=== PATIENT | female | born 1935 | race African-American/Black ===

== ENCOUNTER 2017-03-01 16:26 | Emergency (ER) | payer MEDICARE ==
[~2017-03-01] VITALS: Ht 152.4 cm; Wt 78.3 kg
[2017-03-01] MEDS ORDERED: SODIUM CHLORIDE 0.9% 1,000 ML IV ONE ×2 (16:34→17:14)
[2017-03-01] MEDS ORDERED: KETOROLAC 30MG/ML VIAL IV STA (17:14)
[2017-03-01] MEDS ORDERED: METOCLOPRAMIDE HCL 10MG/2ML VIAL IV ONE (17:15)
[2017-03-01 17:41] VITALS: BP 192/121
[2017-03-01] MEDS ORDERED: HYDRALAZINE HCL 50MG TABLET PO ONE (18:00)
== END 2017-03-01 19:59 | disposition home or self-care (01) ==
LOC: ER 16:39
DX: R51 Headache (principal); I10 Essential (primary) hypertension; Z88.0 Allergy status to penicillin; Z90.49 Acquired absence of other specified parts of digestive tract
CPT/HCPCS: 70450; 96374; 96375; 99284; J1885; J2765; J7030

== ENCOUNTER 2018-09-15 12:24 | Inpatient (IN) | payer MEDICARE ==
[~2018-09-15] VITALS: Ht 152.4 cm; Wt 75.7 kg
[2018-09-15 13:02] LABS: BASOPHILS % 0.6 % (0.0-2.0); EOSINOPHILS % 1.7 % (0.0-5.0); HEMATOCRIT. 43.1 % (36.0-48.0); HEMOGLOBIN. 15.3 g/dL (12.0-16.0); LYMPHOCYTES % 31.5 % (20.0-50.0); MEAN CORPUSCULAR HEMOGLOBIN 33.8 pg (28.0-32.0); MEAN CORPUSCULAR VOLUME 95.1 fL (81.0-99.0); MEAN PLATELET VOLUME 9.9 fl (7.4-10.4); NEUTROPHILS % 57.2 % (40.0-76.0); PLATELET 217 x1000/uL (130-400); RED BLOOD CELL COUNT 4.53 mill/uL (4.2-5.4); RED CELL DISTRIBUTION WIDTH 13.5 % (11.6-14.6)
[2018-09-15 13:08] LABS: CHLORIDE 105 mEq/L (98-107)
[2018-09-15 13:11] LABS: ETHANOL BLOOD < 10 mg/dL
[2018-09-15 13:13] LABS: LDL CHOLESTEROL 73 mg/dL (5-100)
[2018-09-15 13:23] LABS: PROTHROMBIN TIME 10.7 sec (9.6-11.0)
[2018-09-15] MEDS ORDERED: ASPIRIN 325MG TABLET PO ONE (13:30)
[2018-09-15] MEDS ORDERED: ASPIRIN 300MG SUPP PR ONE (13:45)
[2018-09-15] MEDS ORDERED: ASPIRIN 600MG SUPP PR SCH (14:00)
[2018-09-15 14:03] LABS: CLARITY URINE CLEAR (CLEAR); COLOR URINE YELLOW (YELLOW); KETONES URINE NEGATIVE (NEGATIVE); LEUKOCYTE ESTERASE URINE TRACE (NEGATIVE); NITRITE URINE NEGATIVE (NEGATIVE); OCCULT BLOOD URINE NEGATIVE (NEGATIVE); PROTEIN URINE NEGATIVE (NEGATIVE); SPECIFIC GRAVITY URINE 1.016 (1.005-1.030); UROBILINOGEN URINE 0.2 E.U./dL (0.2-1.0)
[2018-09-15 14:12] LABS: *AMPHETAMINES SCREEN URINE NEGATIVE (NEGATIVE); *BARBITURATES SCREEN URINE NEGATIVE (NEGATIVE); *BENZODIAZEPINES SCREEN URINE NEGATIVE (NEGATIVE); *COCAINE SCREEN URINE NEGATIVE (NEGATIVE); CANNABINOID URINE SCREEN NEGATIVE (NEGATIVE); METHADONE URINE SCREEN NEGATIVE (NEGATIVE); OPIATES URINE SCREEN NEGATIVE (NEGATIVE); PHENCYCLIDINE URINE SCREEN NEGATIVE (NEGATIVE)
[2018-09-15] MEDS ORDERED: IOHEXOL-350 100 ML BOTTLE ONE (18:35)
[2018-09-15 18:42] VITALS: BP 145/90
[2018-09-15] MEDS ORDERED: CLOP75TA4 MT (19:57)
[2018-09-15] MEDS ORDERED: HYDR25TA MT (19:57)
[2018-09-15 20:00] VITALS: BP 146/90
[2018-09-15 22:00] VITALS: BP 140/73
[2018-09-16] VITALS (13 sets, daily range): BP systolic 101–146; BP diastolic 57–84
[2018-09-16 07:33] LABS: BASOPHILS % 0.6 % (0.0-2.0); EOSINOPHILS % 2.5 % (0.0-5.0); HEMATOCRIT. 42.7 % (36.0-48.0); HEMOGLOBIN. 14.8 g/dL (12.0-16.0); LYMPHOCYTES % 33.6 % (20.0-50.0); MEAN CORPUSCULAR VOLUME 95.2 fL (81.0-99.0); MONOCYTES % 10.3 % (2.0-8.0); PLATELET 193 x1000/uL (130-400); RED BLOOD CELL COUNT 4.49 mill/uL (4.2-5.4); RED CELL DISTRIBUTION WIDTH 13.5 % (11.6-14.6)
[2018-09-16 07:46] LABS: CHLORIDE 106 mEq/L (98-107)
[2018-09-16 08:04] LABS: LDL CHOLESTEROL 54 mg/dL (5-100)
[2018-09-16 08:06] LABS: CREATINE KINASE 41 IU/L (26-192); HDL CHOLESTEROL 58 mg/dL (40-59)
[2018-09-16 08:07] LABS: CREATINE KINASE MB FRACTION 1.4 ng/mL (0.5-3.6)
[2018-09-16] MEDS ORDERED: POTASSIUM CHLORIDE 20MEQ TABLET SR PO SCH (10:00)
[2018-09-16] MEDS: HYDROCHLOROTHIAZIDE 25MG TABLET PO SCH (10:29)
[2018-09-16] MEDS: ENOXAPARIN 40MG/0.4ML SYR SUBCUT SCH (10:30)
[2018-09-16] MEDS: HYDROCODONE/ACETAMINOPHEN 5/325MG TABLET PO PRN ×2 (10:31→21:38)
[2018-09-16] MEDS: CLOPIDOGREL 75MG TABLET PO SCH (13:34)
[2018-09-16] MEDS: ASPIRIN 81MG TABLET PO SCH (18:36)
[2018-09-16] MEDS ORDERED: ATORVASTATIN CALCIUM 40MG TABLET PO SCH (21:00)
[2018-09-17] VITALS (10 sets, daily range): BP systolic 95–142; BP diastolic 42–88
[2018-09-17 06:21] LABS: BASOPHILS % 0.5 % (0.0-2.0); EOSINOPHILS % 3.1 % (0.0-5.0); HEMATOCRIT. 42.2 % (36.0-48.0); HEMOGLOBIN. 14.8 g/dL (12.0-16.0); LYMPHOCYTES % 34.3 % (20.0-50.0); MEAN CORPUSCULAR HEMOGLOBIN 33.2 pg (28.0-32.0); MEAN CORPUSCULAR VOLUME 94.9 fL (81.0-99.0); MEAN PLATELET VOLUME 9.6 fl (7.4-10.4); MONOCYTES % 10.3 % (2.0-8.0); NEUTROPHILS % 51.8 % (40.0-76.0); PLATELET 188 x1000/uL (130-400); RED BLOOD CELL COUNT 4.45 mill/uL (4.2-5.4); RED CELL DISTRIBUTION WIDTH 13.5 % (11.6-14.6)
[2018-09-17 06:31] LABS: CHLORIDE 104 mEq/L (98-107)
[2018-09-17] MEDS: ASPIRIN 81MG TABLET PO SCH (09:00)
[2018-09-17] MEDS: CLOPIDOGREL 75MG TABLET PO SCH (09:00)
[2018-09-17] MEDS: HYDROCHLOROTHIAZIDE 25MG TABLET PO SCH (09:00)
[2018-09-17] MEDS ORDERED: FENTANYL CITRATE/PF 50MCG/ML 2ML VIAL ONE (09:53)
[2018-09-17] MEDS ORDERED: TETRACAINE/BENZOCAINE/BUTAMBEN 20 GM SPRAY MM ONE (09:53)
[2018-09-17] MEDS ORDERED: MIDAZOLAM HCL 2 MG/2 ML VIAL ONE (09:53)
[2018-09-17] MEDS ORDERED: LIDOCAINE HCL 2% JELLY 5ML ONE (09:56)
[2018-09-17] MEDS: ENOXAPARIN 40MG/0.4ML SYR SUBCUT SCH (11:50)
== END 2018-09-17 18:30 | disposition home or self-care (01) | DRG 65 ==
LOC: ER 12:24 → 5EST 13:35 → EDBEDREQ 13:38 → EDBEDREQTM 13:38 → ENRESERV 17:51 → CANRESERV 17:51 → ENRESERV 17:55 → 5EST 22:12
PROVIDERS: ADMIT Internal Medicine; ATTEND Internal Medicine
PROC: 4A00X4Z Measurement of Central Nervous Electrical Activity, External Approach (ICD-10-PCS; principal; 2018-09-16)
DX: I63.9 Cerebral infarction, unspecified (principal); G96.0 Cerebrospinal fluid leak; I25.10 Atherosclerotic heart disease of native coronary artery without angina pectoris; I10 Essential (primary) hypertension; E78.5 Hyperlipidemia, unspecified; I65.23 Occlusion and stenosis of bilateral carotid arteries; E78.00 Pure hypercholesterolemia, unspecified; R47.1 Dysarthria and anarthria; R29.810 Facial weakness; Z88.0 Allergy status to penicillin; Z88.7 Allergy status to serum and vaccine; Z90.49 Acquired absence of other specified parts of digestive tract; Z98.891 History of uterine scar from previous surgery; Z95.5 Presence of coronary angioplasty implant and graft; Z82.49 Family history of ischemic heart disease and other diseases of the circulatory system
CPT/HCPCS: 36415; 70496; 70498; 70551; 71045; 80061; 80305; 80320; 82550; 82553; 82962; 83721; 83735; 83880; 84443; 84484; 85379; 92610; 93005; 93306; 97116; 97162; 99291; J1650; J2250; J3010; Q9967; G0480

== ENCOUNTER 2018-10-06 10:02 | Emergency (ER) | payer MEDICARE ==
[~2018-10-06] VITALS: Ht 152.4 cm; Wt 71.4 kg
[~2018-10-06 10:02] MED LIST: CLOP75TA4 MT; HYDR25TA MT
[2018-10-06 10:47] LABS: BASOPHILS % 0.8 % (0.0-2.0); EOSINOPHILS % 2.5 % (0.0-5.0); HEMATOCRIT. 45.5 % (36.0-48.0); HEMOGLOBIN. 15.8 g/dL (12.0-16.0); LYMPHOCYTES % 32.9 % (20.0-50.0); MEAN CORPUSCULAR HEMOGLOBIN 32.6 pg (28.0-32.0); MEAN PLATELET VOLUME 9.8 fl (7.4-10.4); MONOCYTES % 9.8 % (2.0-8.0); PLATELET 197 x1000/uL (130-400); RED BLOOD CELL COUNT 4.84 mill/uL (4.2-5.4); RED CELL DISTRIBUTION WIDTH 13.6 % (11.6-14.6)
[2018-10-06 11:13] LABS: LDL CHOLESTEROL 67 mg/dL (5-100)
[2018-10-06 11:22] LABS: CHLORIDE 102 mEq/L (98-107)
[2018-10-06 11:24] LABS: INR 1.1; PROTHROMBIN TIME 11.2 sec (9.6-11.0)
[2018-10-06] MEDS ORDERED: ASPIRIN 81MG TABLET PO ONE (11:30)
[2018-10-06 13:18] LABS: CLARITY URINE CLEAR (CLEAR); COLOR URINE YELLOW (YELLOW); KETONES URINE NEGATIVE (NEGATIVE); LEUKOCYTE ESTERASE URINE 2+ (NEGATIVE); NITRITE URINE NEGATIVE (NEGATIVE); OCCULT BLOOD URINE NEGATIVE (NEGATIVE); PH URINE 5.5 (4.5-8.0); PROTEIN URINE NEGATIVE (NEGATIVE); SPECIFIC GRAVITY URINE 1.009 (1.005-1.030)
[2018-10-06] MEDS ORDERED: POTASSIUM CHLORIDE INJ 40 MEQ in DEXT 5% WATER 250 ML IV NR (14:15)
[2018-10-06] MEDS ORDERED: HYDROCODONE/ACETAMINOPHEN 5/325MG TABLET PO PRN (14:30)
[2018-10-06 19:04] VITALS: BP 142/78
== END 2018-10-06 19:24 | disposition short-term general hospital (02) ==
LOC: ER 10:02 → CANBEDREQ 14:27 → ER 19:24
DX: I63.9 Cerebral infarction, unspecified (principal); R20.0 Anesthesia of skin; M79.672 Pain in left foot; I10 Essential (primary) hypertension; Z88.3 Allergy status to other anti-infective agents; Z86.73 Personal history of transient ischemic attack (TIA), and cerebral infarction without residual deficits; Z90.49 Acquired absence of other specified parts of digestive tract; Z98.62 Peripheral vascular angioplasty status
CPT/HCPCS: 36415; 70450; 71045; 73590; 73630; 80053; 81003; 82962; 83036; 83721; 84484; 84550; 85025; 85610; 93005; 93970; 96365; 96366; 99285; J3480; J7060